=== PATIENT | female | born 1935 | race African-American/Black ===

== ENCOUNTER 2016-11-19 13:06 | Inpatient (IN) | payer OTHER ==
[~2016-11-19] VITALS: Ht 165.1 cm; Wt 72.1 kg
[2016-11-19 19:22] VITALS: BP 165/76
[2016-11-19] MEDS ORDERED: OMEPRAZOLE40 MG PO (21:16)
[2016-11-19] MEDS ORDERED: RENA-VITE TABL0.8 MG PO (21:17)
[2016-11-19] MEDS ORDERED: CALCIUM ACETAT667 MG PO (21:19)
[2016-11-19] MEDS ORDERED: MURO-12815 ML/BOT OPHTHALMIC (21:27)
[2016-11-19] MEDS ORDERED: CATAPRES0.2 MG PO (21:28)
[2016-11-19] MEDS ORDERED: LIPITOR 20 MG T20 M1 PO (21:29)
[2016-11-19] MEDS ORDERED: BYSTOLIC10 MG PO (21:29)
[2016-11-19] MEDS ORDERED: VALSARTAN-HCTZ1 EAC3 PO (21:30)
[2016-11-19] MEDS ORDERED: AMLODIPINE BESY10 MG PO (21:31)
[2016-11-19] MEDS ORDERED: HYDRALAZINE HC100 MG PO (21:31)
[2016-11-19] MEDS ORDERED: ASPIR 8181 M1 PO (21:34)
[2016-11-19 23:02] VITALS: BP 144/62
[2016-11-20] VITALS (9 sets, daily range): BP systolic 97–165; BP diastolic 54–66
[2016-11-20 02:56] LABS: HEMOGLOBIN 9.7 gm/dL (12.0-15.0); MCHC 33.5 g/dL (28.0-37.0); MCV 92.6 fL (80.0-100.0); RBC 3.14 mil/uL (4.20-5.00); RDW 13.4 % (10.5-14.5); WBC 6.5 thou/uL (4.0-11.0)
[2016-11-20 03:10] LABS: APTT 37.6 Seconds (24.5-32.8); PROTIME 10.8 Seconds (9.3-11.4)
[2016-11-20 03:18] LABS: CALCIUM 9.6 mg/dL (8.5-10.1); CREATININE 6.7 mg/dL (0.6-1.0); PHOSPHORUS 5.3 mg/dL (2.5-4.9); POTASSIUM 5.1 mmol/L (3.5-5.1)
[2016-11-20 14:08] LABS: URINE BILIRUBIN NEGATIVE (Negative); URINE BLOOD TRACE (Negative); URINE COLOR YELLOW; URINE GLUCOSE-RANDOM* NEGATIVE (Negative); URINE KETONES NEGATIVE (Negative); URINE NITRITE NEGATIVE (Negative); URINE PROTEIN (DIPSTICK) 2+ (Negative); URINE UROBILINOGEN 0.2 E.U./dl (0.2-1.0)
[2016-11-20 14:21] LABS: AMORPHOUS PHOSPHATES Moderate /LPF (None Seen); BACTERIA >30 Many /HPF (None Seen); CASTS None Seen /LPF (None Seen); SQUAMOUS >10 Many /LPF (0-3); URINE RBC 0-2 Rare /HPF (0-2); URINE WBC >25 Many /HPF (0-5)
[2016-11-21] VITALS (15 sets, daily range): BP systolic 88–143; BP diastolic 50–71
[2016-11-21 00:48] LABS: HEMATOCRIT 30.2 % (37.0-47.0); HEMOGLOBIN 10.1 gm/dL (12.0-15.0); MCH 31.6 pg (26.0-34.0); MCHC 33.3 g/dL (28.0-37.0); MCV 94.8 fL (80.0-100.0); RBC 3.19 mil/uL (4.20-5.00); RDW 13.6 % (10.5-14.5); WBC 7.9 thou/uL (4.0-11.0)
[2016-11-21 00:59] LABS: ALBUMIN 3.1 g/dL (3.4-5.0); CALCIUM 9.7 mg/dL (8.5-10.1); PHOSPHORUS 4.6 mg/dL (2.5-4.9); POTASSIUM 5.2 mmol/L (3.5-5.1)
[2016-11-21 01:00] LABS: CREATININE 5.1 mg/dL (0.6-1.0)
[2016-11-21 18:42] LABS: POC BE 6 mmol/L (-2.0 to +3.0); POC FiO2 100 %; POC GLUCOSE 144 mg/dL (70-99); POC HCO3 30.2 mmol/L (22.0-26.0); POC HEMOGLOBIN 6.1 g/dL (12.0-15.0); POC POTASSIUM 5.5 mmol/L (3.5-5.1); POC SODIUM 129 mmol/L (136-145); POC pCO2 46.5 mmHg (35.0-45.0); POC pH 7.421 (7.360-7.450)
[2016-11-21 18:42] LABS: POC BE 10 mmol/L (-2.0 to +3.0); POC CA IONIZED 4.7 mg/dL (4.5-5.3); POC FiO2 100 %; POC GLUCOSE 107 mg/dL (70-99); POC HEMOGLOBIN 9.2 g/dL (12.0-15.0); POC POTASSIUM 4.4 mmol/L (3.5-5.1); POC SODIUM 131 mmol/L (136-145); POC pCO2 36.7 mmHg (35.0-45.0); POC pH 7.549 (7.360-7.450)
[2016-11-21 18:42] LABS: POC BE 4 mmol/L (-2.0 to +3.0); POC CA IONIZED 4.3 mg/dL (4.5-5.3); POC FiO2 100 %; POC GLUCOSE 107 mg/dL (70-99); POC HCO3 29.8 mmol/L (22.0-26.0); POC HEMOGLOBIN 6.8 g/dL (12.0-15.0); POC POTASSIUM 5.1 mmol/L (3.5-5.1); POC SODIUM 129 mmol/L (136-145); POC pCO2 57.2 mmHg (35.0-45.0); POC pH 7.325 (7.360-7.450)
[2016-11-21 18:42] LABS: POC BE 8 mmol/L (-2.0 to +3.0); POC CA IONIZED 4.2 mg/dL (4.5-5.3); POC FiO2 100 %; POC GLUCOSE 109 mg/dL (70-99); POC HCO3 30.8 mmol/L (22.0-26.0); POC HEMOGLOBIN 6.1 g/dL (12.0-15.0); POC POTASSIUM 5.3 mmol/L (3.5-5.1); POC SODIUM 127 mmol/L (136-145); POC pCO2 37.3 mmHg (35.0-45.0); POC pH 7.526 (7.360-7.450)
[2016-11-21 18:42] LABS: POC BE 5 mmol/L (-2.0 to +3.0); POC CA IONIZED 7.8 mg/dL (4.5-5.3); POC FiO2 100 %; POC GLUCOSE 147 mg/dL (70-99); POC HCO3 29.3 mmol/L (22.0-26.0); POC HEMOGLOBIN 5.4 g/dL (12.0-15.0); POC POTASSIUM 6.2 mmol/L (3.5-5.1); POC SODIUM 125 mmol/L (136-145); POC pCO2 41.3 mmHg (35.0-45.0); POC pH 7.458 (7.360-7.450)
[2016-11-21 18:42] LABS: POC BE 9 mmol/L (-2.0 to +3.0); POC CA IONIZED 4.2 mg/dL (4.5-5.3); POC FiO2 100 %; POC GLUCOSE 129 mg/dL (70-99); POC HCO3 31.1 mmol/L (22.0-26.0); POC HEMOGLOBIN 6.1 g/dL (12.0-15.0); POC POTASSIUM 5.8 mmol/L (3.5-5.1); POC SODIUM 127 mmol/L (136-145); POC pCO2 35.6 mmHg (35.0-45.0)
[2016-11-21 18:42] LABS: POC BE 1 mmol/L (-2.0 to +3.0); POC CA IONIZED 4.5 mg/dL (4.5-5.3); POC FiO2 100 %; POC GLUCOSE 104 mg/dL (70-99); POC HCO3 27.5 mmol/L (22.0-26.0); POC HEMOGLOBIN 7.5 g/dL (12.0-15.0); POC POTASSIUM 5.1 mmol/L (3.5-5.1); POC SODIUM 130 mmol/L (136-145); POC pCO2 58.3 mmHg (35.0-45.0); POC pH 7.282 (7.360-7.450)
[2016-11-21 18:42] LABS: POC BE 2 mmol/L (-2.0 to +3.0); POC CA IONIZED 5.1 mg/dL (4.5-5.3); POC FiO2 100 %; POC GLUCOSE 251 mg/dL (70-99); POC HCO3 27.9 mmol/L (22.0-26.0); POC HEMOGLOBIN 7.5 g/dL (12.0-15.0); POC POTASSIUM 4.9 mmol/L (3.5-5.1); POC SODIUM 131 mmol/L (136-145); POC pCO2 51.9 mmHg (35.0-45.0); POC pH 7.339 (7.360-7.450)
[2016-11-21 19:20] LABS: ABG SAMPLE TYPE ARTERIAL; BE(vivo) -3.1 mmol/L (-2 to +3); HCO3 23.3 mmol/L (22.0-26.0); LACTATE 2.17 mmol/L (0.5-2.0); O2(CT) 12.3 mL/dL (15.0-23.0); O2Hb 97.7 % (92.0-98.0); PCO2 48.4 mmHg (35.0-45.0); PO2 196.6 mmHg (80.0-100.0); STICK SITE LINE; TIDAL VOLUME 500 ml; sO2 99.2 % (92.0-98.0); tCO2 24.8 mmol/L (24.0-30.0)
[2016-11-21 19:53] LABS: HEMOGLOBIN 8.1 gm/dL (12.0-15.0); MCH 30.9 pg (26.0-34.0); MCHC 33.8 g/dL (28.0-37.0); MCV 91.4 fL (80.0-100.0); RBC 2.62 mil/uL (4.20-5.00); RDW 14.9 % (10.5-14.5); WBC 6.8 thou/uL (4.0-11.0)
[2016-11-21 20:03] LABS: CREATININE 5.8 mg/dL (0.6-1.0); MAGNESIUM 2.8 mg/dL (1.8-2.4)
[2016-11-21 20:04] LABS: CALCIUM 11.7 mg/dL (8.5-10.1)
[2016-11-21 20:21] LABS: INR 1.2
[2016-11-21 20:22] LABS: APTT 32.9 Seconds (24.5-32.8)
[2016-11-21 23:48] LABS: ABG SAMPLE TYPE ARTERIAL; BE(vivo) -0.5 mmol/L (-2 to +3); HCO3 23.7 mmol/L (22.0-26.0); LACTATE 1.43 mmol/L (0.5-2.0); O2(CT) 12.7 mL/dL (15.0-23.0); PCO2 36.8 mmHg (35.0-45.0); PO2 149.1 mmHg (80.0-100.0); pH 7.427 (7.360-7.450); tCO2 24.8 mmol/L (24.0-30.0)
[2016-11-21 23:49] LABS: ABG COMMENT PRE WEANING; STICK SITE LINE; TIDAL VOLUME 500 ml
[2016-11-22] VITALS (20 sets, daily range): BP systolic 89–145; BP diastolic 51–109
[2016-11-22 00:10] LABS: HEP B SURFACE Ab(ANTI-HBS Reactive (())
[2016-11-22 05:16] LABS: HEMATOCRIT 25.4 % (37.0-47.0); HEMOGLOBIN 8.5 gm/dL (12.0-15.0); MCH 30.6 pg (26.0-34.0); MCHC 33.4 g/dL (28.0-37.0); MCV 91.6 fL (80.0-100.0); RBC 2.77 mil/uL (4.20-5.00); RDW 15.3 % (10.5-14.5); WBC 13.3 thou/uL (4.0-11.0)
[2016-11-22 05:24] LABS: CALCIUM 11.6 mg/dL (8.5-10.1); MAGNESIUM 2.7 mg/dL (1.8-2.4)
[2016-11-22 05:25] LABS: CREATININE 6.8 mg/dL (0.6-1.0)
[2016-11-22 15:41] LABS: ABG COMMENT C-PAP; ABG SAMPLE TYPE ARTERIAL; BE(vivo) 4.2 mmol/L (-2 to +3); HCO3 29.2 mmol/L (22.0-26.0); LACTATE 1.33 mmol/L (0.5-2.0); O2(CT) 11.2 mL/dL (15.0-23.0); O2Hb 97.8 % (92.0-98.0); PCO2 45.9 mmHg (35.0-45.0); PO2 162.6 mmHg (80.0-100.0); Pressure Support 6 cm H20; STICK SITE LINE; pH 7.421 (7.360-7.450); sO2 99.1 % (92.0-98.0); tCO2 30.6 mmol/L (24.0-30.0)
[2016-11-22 19:43] LABS: ABG SAMPLE TYPE ARTERIAL; HCO3 25.5 mmol/L (22.0-26.0); LACTATE 1.26 mmol/L (0.5-2.0); O2(CT) 10.9 mL/dL (15.0-23.0); O2Hb 97.7 % (92.0-98.0); PCO2 40.2 mmHg (35.0-45.0); PO2 152.4 mmHg (80.0-100.0); pH 7.421 (7.360-7.450); tCO2 26.8 mmol/L (24.0-30.0)
[2016-11-22 19:44] LABS: ABG COMMENT 4HR POST EXTUB.; STICK SITE LINE
[2016-11-23] VITALS (36 sets, daily range): BP systolic 99–153; BP diastolic 44–122
[2016-11-23 04:05] LABS: HEMATOCRIT 21.3 % (37.0-47.0); HEMOGLOBIN 7.1 gm/dL (12.0-15.0); MCH 31.1 pg (26.0-34.0); MCHC 33.6 g/dL (28.0-37.0); MCV 92.6 fL (80.0-100.0); RBC 2.3 mil/uL (4.20-5.00); RDW 15.5 % (10.5-14.5); WBC 10.5 thou/uL (4.0-11.0)
[2016-11-23 04:12] LABS: CALCIUM 9.5 mg/dL (8.5-10.1); CREATININE 4.7 mg/dL (0.6-1.0); POTASSIUM 5.2 mmol/L (3.5-5.1)
[2016-11-24] VITALS (7 sets, daily range): BP systolic 101–129; BP diastolic 46–73
[2016-11-24 07:23] LABS: HEMATOCRIT 22.5 % (37.0-47.0); HEMOGLOBIN 7.5 gm/dL (12.0-15.0); MCH 31.3 pg (26.0-34.0); MCHC 33.5 g/dL (28.0-37.0); MCV 93.4 fL (80.0-100.0); RBC 2.4 mil/uL (4.20-5.00); RDW 15.3 % (10.5-14.5)
[2016-11-24 07:47] LABS: CALCIUM 9.5 mg/dL (8.5-10.1); POTASSIUM 4.2 mmol/L (3.5-5.1)
[2016-11-25 04:17] VITALS: BP 113/55
[2016-11-25 07:30] VITALS: BP 103/50
[2016-11-25 11:20] VITALS: BP 125/45
[2016-11-25 15:40] VITALS: BP 112/52
[2016-11-25 19:58] VITALS: BP 121/53
[2016-11-25 22:55] VITALS: BP 134/49
[2016-11-26 03:37] LABS: HEMOGLOBIN 6.6 gm/dL (12.0-15.0); MCHC 33.9 g/dL (28.0-37.0); WBC 7.2 thou/uL (4.0-11.0)
[2016-11-26 03:39] LABS: MCH 31.5 pg (26.0-34.0); RBC 2.08 mil/uL (4.20-5.00); RDW 14.4 % (10.5-14.5)
[2016-11-26 03:42] LABS: HEMATOCRIT 19.3 % (37.0-47.0)
[2016-11-26 03:49] LABS: MAGNESIUM 2.6 mg/dL (1.8-2.4)
[2016-11-26 03:50] LABS: CREATININE 8.1 mg/dL (0.6-1.0)
[2016-11-26 04:24] VITALS: BP 134/68
[2016-11-26 07:35] VITALS: BP 125/50
[2016-11-26 11:40] VITALS: BP 120/66
[2016-11-26 15:30] VITALS: BP 113/59
[2016-11-26 19:40] VITALS: BP 128/59
[2016-11-27 03:20] VITALS: BP 134/62
[2016-11-27 07:17] LABS: HEMATOCRIT 22.7 % (37.0-47.0); HEMOGLOBIN 7.7 gm/dL (12.0-15.0); MCH 31.3 pg (26.0-34.0); MCHC 33.9 g/dL (28.0-37.0); MCV 92.4 fL (80.0-100.0); RBC 2.46 mil/uL (4.20-5.00); WBC 7.7 thou/uL (4.0-11.0)
[2016-11-27 07:42] LABS: CALCIUM 8.7 mg/dL (8.5-10.1); POTASSIUM 4.4 mmol/L (3.5-5.1)
[2016-11-27 07:48] LABS: CREATININE 4.6 mg/dL (0.6-1.0)
[2016-11-27 07:53] VITALS: BP 122/75
[2016-11-27 12:00] VITALS: BP 151/70
[2016-11-27 15:35] VITALS: BP 146/71
[2016-11-27 20:05] VITALS: BP 148/124
[2016-11-28 04:30] VITALS: BP 129/59
[2016-11-28 07:36] VITALS: BP 142/62
[2016-11-28] MEDS ORDERED: PACERONE 200 M200 M1 PO (14:27)
[2016-11-28 16:21] VITALS: BP 146/71
== END 2016-11-28 18:43 | DRG 235 ==
LOC: 2N 13:06 → TBA 11-21 11:09 → ICU 11-21 19:03 → 2N 11-23 16:06
PROVIDERS: Hospitalist; Nurse Practitioner; Nurse Practitioner Family; Surgery Vascular Surgery; Thoracic Surgery (Cardiothoracic Vascular Surgery)
PROC: 5A1D60Z (ICD-10-PCS; principal; 2016-11-20)
PROC: 30233R1 Transfusion of Nonautologous Platelets into Peripheral Vein, Percutaneous Approach (ICD-10-PCS; 2016-11-21)
PROC: 30233K1 Transfusion of Nonautologous Frozen Plasma into Peripheral Vein, Percutaneous Approach (ICD-10-PCS; 2016-11-21)
PROC: 5A1221Z Performance of Cardiac Output, Continuous (ICD-10-PCS; 2016-11-21)
PROC: 30233L1 Transfusion of Nonautologous Fresh Plasma into Peripheral Vein, Percutaneous Approach (ICD-10-PCS; 2016-11-21)
PROC: 06BQ4ZZ Excision of Left Saphenous Vein, Percutaneous Endoscopic Approach (ICD-10-PCS; 2016-11-21)
PROC: 30233N1 Transfusion of Nonautologous Red Blood Cells into Peripheral Vein, Percutaneous Approach (ICD-10-PCS; 2016-11-21)
PROC: 02100Z9 Bypass Coronary Artery, One Artery from Left Internal Mammary, Open Approach (ICD-10-PCS; 2016-11-21)
PROC: 03HB33Z Insertion of Infusion Device into Right Radial Artery, Percutaneous Approach (ICD-10-PCS; 2016-11-21)
PROC: 021109W Bypass Coronary Artery, Two Arteries from Aorta with Autologous Venous Tissue, Open Approach (ICD-10-PCS; 2016-11-21)
PROC: 0BH17EZ Insertion of Endotracheal Airway into Trachea, Via Natural or Artificial Opening (ICD-10-PCS; 2016-11-22)
PROC: 5A1935Z Respiratory Ventilation, Less than 24 Consecutive Hours (ICD-10-PCS; 2016-11-22)
DX: I21.4 Non-ST elevation (NSTEMI) myocardial infarction (principal); N18.6 End stage renal disease; I12.0 Hypertensive chronic kidney disease with stage 5 chronic kidney disease or end stage renal disease; D62 Acute posthemorrhagic anemia; E78.5 Hyperlipidemia, unspecified; I25.10 Atherosclerotic heart disease of native coronary artery without angina pectoris; E87.5 Hyperkalemia; I95.9 Hypotension, unspecified; D63.8 Anemia in other chronic diseases classified elsewhere; K21.9 Gastro-esophageal reflux disease without esophagitis; M19.90 Unspecified osteoarthritis, unspecified site; Z96.651 Presence of right artificial knee joint; Z90.49 Acquired absence of other specified parts of digestive tract; Z90.710 Acquired absence of both cervix and uterus; Z99.2 Dependence on renal dialysis; Z79.82 Long term (current) use of aspirin; Z79.899 Other long term (current) drug therapy; Z98.49 Cataract extraction status, unspecified eye; Z82.49 Family history of ischemic heart disease and other diseases of the circulatory system; Z83.3 Family history of diabetes mellitus
CPT/HCPCS: 10078; 10081; 32100; 47000; 47001; 47002; 47297; 48888; 50010; 50011; 50249; 50409; 50456; 50497; 50662; 50668; 51301; 52131; 53327; 53358; 54118; 56524; 56525; 56526; 56527; 56528; 56531; 56534; 56639; 56660; 57093; 62110; 62950; 64029; 65002; 65003; 65043; 65090; 65120